=== PATIENT | female | born 1995 | race Caucasian/White ===

== ENCOUNTER 2019-04-20 20:54 | Emergency (ER) | payer SELFPAY ==
[2019-04-20 21:14] VITALS: BP 133/74
--- NOTE | 2019-04-20 22:06 | ER Document Report ---
ED Medical Screen (RME) - General Chief Complaint: Headache Stated Complaint: HEADACHE Time Seen by Provider: 04/20/19 21:58 Notes: Patient is a 24-year-old female with a history of bipolar and anxiety who presents emergency department with a chief complaint of headache. Patient reports she has had a headache to the top of the head and sometimes to the right side of the face for about 1 month. Patient reports that the headache comes every day between the hours of 3 PM and 6 PM. Patient reports originally 1 month ago she did hit her head on a metal sign. Patient reports at that time she did not have a loss of consciousness. Patient denies use of blood thinners. Patient reports since then she has bumped her head multiple times in the same spot. Patient reports she has taken ibuprofen which does help temporarily. Patient reports she did take a Valium 1 hour prior to arrival that was given to her to help with anxiety and potentially her headache. Patient reports light sensitivity and nausea without vomiting or visual changes. Patient reports her last menstrual cycle is right now but that she potentially could be . TRAVEL OUTSIDE OF THE [place] IN LAST 30 DAYS: No - Related Data Allergies/Adverse Reactions: No Known Allergies Allergy (Unverified 04/20/19 21:56) Past Medical History - Social History Chew tobacco use (# tins/day): No Frequency of alcohol use: Social Drug Abuse: None Physical Exam - Vital signs Vitals: Temp Pulse Resp BP Pulse Ox 97.7 F 81 16 133/74 H 100 04/20/19 21:13 04/20/19 21:13 04/20/19 21:13 04/20/19 21:13 04/20/19 21:13 - HEENT Head: Normocephalic Eyes: Normal Conjunctiva: Normal Cornea: Normal Pupils: PERRL Course - Re-evaluation Re-evalutation: 04/20/19 22:05 We will obtain a urine hCG. If this is negative we will continue with the migraine cocktail of Reglan, Toradol and benadryl. I have greeted and performed a rapid initial assessment of this patient. A comprehensive ED assessment and evaluation of the patient, analysis of test results and completion of the medical decision making process will be conducted by additional ED providers. - Vital Signs Vital signs: Temp Pulse Resp BP Pulse Ox 97.7 F 81 16 133/74 H 100 04/20/19 21:13 04/20/19 21:13 04/20/19 21:13 04/20/19 21:13 04/20/19 21:13
[2019-04-20 22:23] LABS: APPEARANCE,URINE CLOUDY; BILIRUBIN,URINE NEGATIVE (NEGATIVE); COLOR,URINE YELLOW; GLUCOSE, URINE NEGATIVE (NEGATIVE); KETONES,URINE NEGATIVE (NEGATIVE); LEUKOCYTE ESTERASE,URINE MODERATE (NEGATIVE); NITRITE,URINE NEGATIVE (NEGATIVE); PROTEIN,URINE NEGATIVE (NEGATIVE); URINE SPECIFIC GRAVITY 1.027; UROBILINOGEN,URINE NEGATIVE mg/dL (<2.0)
[2019-04-20] MEDS ORDERED: KETOROLAC TROMETHAMINE INJ/PF 30 MG/1 ML SDV IV ONE (22:33)
[2019-04-20] MEDS ORDERED: DIPHENHYDRAMINE HCL 50 MG/ML VIAL IV ONE (22:33)
[2019-04-20] MEDS ORDERED: METOCLOPRAMIDE HCL INJ/PF 10 MG/2 ML SDV IV ONE (22:33)
== END 2019-04-21 01:12 | disposition left against medical advice (07) ==
LOC: ER 20:54
DX: R51 Headache (principal); F41.9 Anxiety disorder, unspecified; H53.149 Visual discomfort, unspecified; R11.0 Nausea; Z53.20 Procedure and treatment not carried out because of patient's decision for unspecified reasons
CPT/HCPCS: 81001; 81025; 99281